=== PATIENT | female | born 1980 | race Caucasian/White ===

== ENCOUNTER 2020-05-01 18:08 | Emergency (ER) | payer BC, OTHER ==
[~2020-05-01 18:08] MED LIST: ATROVENT HFA12.9 GM INH; MEDROL DOSEPAK 24 MG PO; PRENATAL VITAM1 EAC5 PO; TIROSINT150 MCG PO; ZOFRAN4 MG PO
[2020-05-01 19:38] LABS: HEMOGLOBIN 13.6 gm/dl (12.3-15.3); RED BLOOD COUNT 5.01 M/UL (4.00-5.10); WHITE BLOOD COUNT 8.2 K/UL (4.5-11.0)
[2020-05-01 20:28] LABS: BUN/CREATININE RATIO 9 (0-10)
== END 2020-05-01 22:30 | disposition home or self-care (01) ==
LOC: ER1 18:08
PROVIDERS: Physician Assistant
DX: R07.81 Pleurodynia (principal); E03.9 Hypothyroidism, unspecified; R06.02 Shortness of breath; R05 Cough; Z91.14 Patient's other noncompliance with medication regimen; Z88.1 Allergy status to other antibiotic agents; Z88.5 Allergy status to narcotic agent; Z88.0 Allergy status to penicillin
CPT/HCPCS: 71045; 80053; 82550; 82553; 83874; 84439; 84443; 84484; 85025; 85379; 93005; 99285